=== PATIENT | male | born 1980 | race Two or more races ===

== ENCOUNTER 2021-02-06 07:39 | Outpatient (REF) | payer OTHER, SELFPAY ==
--- NOTE | ~2021-02-06 | XR_ITS ---
EXAMINATION: XR KNEE, LEFT CLINICAL INFORMATION: Knee pain COMPARISON: None TECHNIQUE: Standing AP view knees and axial patella views left knee are obtained. FINDINGS: Right knee shows no focal narrowing or erosive change or chondrocalcinosis. Normal bony mineralization. The left knee shows no fracture or dislocation, destructive process, or focal joint narrowing. No erosive changes or chondrocalcinosis. Normal bony mineralization. Lateral view shows small suprapatellar effusion. There is spurring at the proximal anterior tibial tuberosity. Corticated ossification resides in regions of distal patella tendon largest ossicle measuring 0.8 x 0 7 cm. There is mild anterior soft tissue swelling and mild edema at the deep infrapatellar recess. Findings may be related to sequela from prior Michael-Schlatter's. XR/XR knee LT 3V IMPRESSION: 1. Left: Probable sequela from prior Michael-Schlatter's with ossification in region of distal patellar tendon, spurring anterior tibial tuberosity, superficial soft tissue swelling, and mild edema deep infrapatellar recess. Small suprapatellar effusion. 2. Right: Unremarkable.
== END 2021-02-06 07:40 | disposition home or self-care (01) ==
LOC: HO.HOSX 07:39
PROVIDERS: Visit Provider Physician Assistant
DX: M23.307 Other meniscus derangements, unspecified meniscus, left knee (principal); M25.562 Pain in left knee
CPT/HCPCS: 20605; 20610; 73562; 99202; J1040

== ENCOUNTER → 2021-02-20 14:40 | Outpatient (BNVA) | payer OTHER, SELFPAY | PROVIDERS: PCP Internal Medicine; Visit Provider Nurse Practitioner Family | DX: M47.819 Spondylosis without myelopathy or radiculopathy, site unspecified (principal); M25.562 Pain in left knee | CPT/HCPCS: 99202 ==

== ENCOUNTER 2021-02-24 12:30 | Outpatient (REF) | payer OTHER, SELFPAY ==
--- NOTE | 2021-02-24 16:54 | MHC.AU.AEV ---
Adult Audiological Evaluation Date of Visit: 02/24/21 Reason for Appointment: Audiological evaluation due to reported history of hearing loss. Mr. Pierre reports that he was previously diagnosed with hearing loss at a clinic in [place] and was fit with hearing aids binaurally. He also reports constant tinnitus bilaterally that he has been experiencing for many years. 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 He has served in the [employer] and has been exposed to significant noise including explosions, firearms, and helicopters. Does patient feel they have a hearing loss?: Yes If Yes, Which Ear?: Both Ears When Was Hearing Difficulty First Noticed?: a few years ago Has hearing been tested previously?: Yes Previous Hearing Test Results: In [place] and through the . Results not available for review today. Hearing Handicap Inventory Does a hearing problem cause you to feel embarrassed when meeting new people?: Yes Does a hearing problem cause you to feel frustrated when talking to members of your family?: Yes Do you have difficulty when someone speaks in a whisper?: Yes Do you feel handicapped by a hearing problem?: Yes Does a hearing problem cause you difficulty when visiting friends, relatives, or neighbors?: Yes Does a hearing problem cause you to attend sikh service services less often than you would like?: No Does a hearing problem cause you to have arguments with family members?: No Does a hearing problem cause you difficulty when listening to TV or radio?: Yes Do you feel that any difficult with your hearing limits or hampers your personal or social life?: Yes Does a hearing problem cause you difficulty when in a restaurants with relatives or friends?: Yes HHIE SCORE: 32 Based on HHIE score, patient has: Severe perceived hearing handicap Ear History: Recent Ear Pain: Both ears, occasionally will get sharp pains in his ears Bothersome Tinnitus/Ringing/Noises in Ears: Both Ears History: History: Yes Branch: [employer] Years in : 9-12 Years Medical History: Medical History: Headache, Head Injury, Migraines, Dizziness/Unsteadiness Medical History: Has had a number of TBIs and concussions. PTSD, depression, anxiety. Appendix removal, knee surgery Allergies: Aspirin Otoscopy: Right Ear: Unremarkable Left Ear: Unremarkable Tympanometry: Tympanometry performed due to: To assess integrity of the middle ear system Right Ear: Hypercompliant Middle Ear System (Type Ad) Left Ear: Normal Middle Ear System (Type A) Otoacoustic Emissions Frequency Range Used: 1.6-8 kHz Right Ear Results: Present @ 0426-9089 Hz & 8729-6127 Hz. Reduced @ 8030-4891 Hz. Analysis: Reduced/Absent emissions suggest cochlear dysfunction Left Ear Results: Present @ 9656-3461 Hz. Reduced @ 8574-5735 Hz. Analysis: Reduced/Absent emissions suggest cochlear dysfunction Hearing Evaluation: Transducer(s) Used: Insert Earphones, Bone Conduction Method: Conventional Audiometry Stimuli Used: Pure Tones Right Ear: Description of Hearing: Volunteered responses in the mild to moderate sensorineural hearing loss range from 250-8000 Hz. Left Ear: Description of Hearing: Volunteered responses in the mild to moderately severe sensorineural hearing loss range from 250-8000 Hz. Note: Fair/Poor reliability. Patient had to be reinstructed several times due to inconsistent and unreliable responses. Initial volunteered responses were in the severe hearing loss range bilaterally, with hearing worse in the left ear than the right. Used ascending vs descending presentation with a significant difference between offered thresholds for each. SRTs do not match pure tone averages (PTAs) for either ear. Given the presence of some normal, present OAEs bilaterally, it would be expected that some of Mr. Pierre's hearing would be in the normal range where his OAEs were present. After some reinstruction, volunteered responses became slightly more consistent and thresholds improved. Final thresholds still considered only of fair reliability. Speech Recognition Threshold (SRT): Method Used: Monitored Live Voice Stimuli Used: Spondee Words Right Ear: 35 dBHL Left Ear: 30 dBHL Word Discrimination: Method: Recorded Lists Word Lists Used: NU-6 Right Ear: 88% at 70 dBHL Left Ear: 92% at 70 dBHL Recommendations: It is recommended that Mr. Pierre follow[facility] . A repeat audiological evaluation is recommended in order to obtain an audiogram of better reliability. Recommended he wear his hearing aids if he is experiencing difficulty hearing and understanding speech. Discussed tinnitus management techniques and exacerbating factors. 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 Diagnosis: Primary Diagnosis: H90.3 Bilateral Sensorineural Hearing Loss Services Performed: Comprehensive Audiological Evaluation (CPT 58996) Diagnostic Otoacoustic Emissions (CPT 65857, 26+TC) Tympanometry (CPT 44908) Signature: Provider: Esthela Berumen, CCC-A
== END 2021-02-24 12:31 | disposition home or self-care (01) ==
LOC: HO.SH 12:30
PROVIDERS: Visit Provider Internal Medicine
DX: H90.3 Sensorineural hearing loss, bilateral (principal)
CPT/HCPCS: 92557; 92567; 92588

== ENCOUNTER → 2021-03-06 09:55 | Outpatient (BNVA) | payer OTHER, SELFPAY | PROVIDERS: PCP Internal Medicine; Visit Provider Nurse Practitioner Family | DX: M47.819 Spondylosis without myelopathy or radiculopathy, site unspecified (principal); M25.562 Pain in left knee; G89.29 Other chronic pain | CPT/HCPCS: 99212 ==

== ENCOUNTER → 2021-03-20 13:50 | Outpatient (BNVA) | payer OTHER, SELFPAY | PROVIDERS: PCP Internal Medicine; Visit Provider Physician Assistant ==

== ENCOUNTER 2021-04-12 09:00 | Outpatient (RCR) | payer OTHER, SELFPAY ==
--- NOTE | 2021-02-23 10:11 | MHC.PT.EP ---
[facility] [place] Office [place] Office [place] Office [address] Thalia Velázquez [address] [phone] F: [phone] F: [phone] F: [phone] F: [phone] Physical Therapy Plan of Care Date of Evaluation: Date of Surgery: 2018 - Patellar tendon and possible meniscal repair. Diagnosis: L knee pain Assessment: Patient is a 40 year old R handed male who presents with s/s consistent with L knee pain. He had a long history of pain that resulted in patellar tendon repair and possible meniscal repair. He will bring in a surgical report next visit. Current x-rays show ossification in addition to other pathology. 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 Patient past medical history also includes plantar fasciitis and back pain. Current impairments include pain, ROM, strength, flexibility, activity tolerance and functional mobility. Functional limitations include decreased ability to walk, stand, transfer, negotiate stairs, and perform weight bearing activities.. Patient is motivated with good rehab potential. Skilled PT will address impairments and functional limitations in order to achieve goals. 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 Manual therapy to restore motion and function. Therapeutic exercise to improve strength and flexibility. Neuromuscular re-education for posture and balance. Therapeutic activities to return to functional activities of daily living. Electronically signed by: Cuco Giles, PT Please sign and return to therapist. Thank you for your referral.
--- NOTE | 2021-05-02 13:32 | MHC.PT.DC ---
[facility] [place] Office [place] Office [place] Office [address] Lisa Velázquez [address] [phone] F: [phone] F: [phone] F: [phone] F: [phone] Physical Therapy Discharge Report Diagnosis: L knee pain Date of Surgery: 2018 - Patellar tendon and possible meniscal repair. Date of Evaluation: 02/23/21 Date of Discharge: 05/02/21 Treatments to Date: 8 Cancellations to Date: 0 No Shows to Date: 0 Discharge Status: Improved Function Independent with HEP Patient Elected to Stop Discharge Summary: LAST ATTENDED PT APPT WAS 04/12/21- Pt HAS PROGREESED WELL IN PT, INCLUDING THER EXER TO ENHANCE MUSCULAR ACTIV/ STABILIZATION TRAINING- Pt NOTED REDUCED LEFT KNEE SXS AFTERWARDS; Pt INDEP W HEP AND IS D/C THIS DATE Electronically signed by: Rose Mary Fraire,PT Please sign and return to therapist. Thank you for your referral.
== END 2021-05-02 13:33 | disposition home or self-care (01) ==
LOC: HO.PTCHIC 09:00
PROVIDERS: PCP Internal Medicine; Visit Provider Physician Assistant
DX: M23.307 Other meniscus derangements, unspecified meniscus, left knee (principal)
CPT/HCPCS: 97110; 97112; 97140; 97162; 97530

== ENCOUNTER 2021-04-25 05:52 | Outpatient (REF) | payer OTHER, SELFPAY ==
--- NOTE | ~2021-04-25 | FL_ITS ---
EXAMINATION: XR FLUOROSCOPY WITH IMAGES CLINICAL INFORMATION: Spondylosis without myelopathy or radiculopathy. COMPARISON: None. TECHNIQUE: Fluoroscopy performed by Palak Mccurdy NP. Fluoroscopy time: 0.7 minutes DAP: 10.7 Gycm2 Images: 6 FINDINGS: There are 6 lumbar images obtained of fluoroscopy. There are needles positioned lateral to the L5, L4 and L3 facet joints with contrast opacifying the adjacent soft tissues. Visualized bones and the soft tissues are unremarkable. FL/FL guidance in treatment room IMPRESSION: Fluoroscopy was provided to referring physician for pain management.
== END 2021-04-25 05:53 | disposition home or self-care (01) ==
LOC: HO.RADIR 05:52
PROVIDERS: Visit Provider Anesthesiology
DX: M47.819 Spondylosis without myelopathy or radiculopathy, site unspecified (principal); M25.562 Pain in left knee; G89.29 Other chronic pain; F17.210 Nicotine dependence, cigarettes, uncomplicated
CPT/HCPCS: 64493; 64494; Q9967

== ENCOUNTER → 2021-05-02 15:00 | Outpatient (BNVA) | payer OTHER, SELFPAY | PROVIDERS: PCP Internal Medicine; Visit Provider Nurse Practitioner Family ==

== ENCOUNTER 2021-05-17 06:30 | Outpatient (REF) | payer OTHER, SELFPAY | END 2021-05-17 06:31 | disposition home or self-care (01) | LOC: HO.RADIR 06:30 | PROVIDERS: Visit Provider Internal Medicine | DX: Z13.89 Encounter for screening for other disorder (principal) ==

== ENCOUNTER 2021-05-24 06:34 | Outpatient (REF) | payer OTHER, SELFPAY ==
--- NOTE | ~2021-05-24 | FL_ITS ---
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 Fluoroscopy time: 1.4 minutes DAP: 12.5 Gycm2 Images: 4 FINDINGS: There are spinal needles overlying the bilateral outer L3, L4, and L5 neural foramen. FL/FL guidance in treatment room IMPRESSION: Fluoroscopy for pain management procedures.
== END 2021-05-24 06:35 | disposition home or self-care (01) ==
LOC: HO.RADIR 06:34
PROVIDERS: Visit Provider Internal Medicine
DX: M47.819 Spondylosis without myelopathy or radiculopathy, site unspecified (principal); M54.5 Low back pain
CPT/HCPCS: 64635; 64636

== ENCOUNTER → 2021-06-30 09:47 | Outpatient (BNVA) | payer OTHER, SELFPAY | PROVIDERS: PCP Internal Medicine; Visit Provider Internal Medicine | DX: M47.819 Spondylosis without myelopathy or radiculopathy, site unspecified (principal); M54.5 Low back pain | CPT/HCPCS: 99212 ==

== ENCOUNTER → 2021-11-01 09:52 | Outpatient (BNVA) | payer OTHER, SELFPAY | PROVIDERS: PCP Internal Medicine; Visit Provider Internal Medicine | DX: G47.33 Obstructive sleep apnea (adult) (pediatric) (principal); E66.9 Obesity, unspecified; Z99.89 Dependence on other enabling machines and devices; Z68.31 Body mass index [BMI] 31.0-31.9, adult | CPT/HCPCS: 99202 ==

== ENCOUNTER 2022-02-26 10:34 | Outpatient (REF) | payer OTHER, SELFPAY ==
--- NOTE | ~2022-02-26 | XR_ITS ---
EXAMINATION: XR SHOULDER , LEFT CLINICAL INFORMATION: Pain COMPARISON: None available at the time of this dictation. TECHNIQUE: AP external rotation, Grashey, scapular Y, and axillary views of the shoulder. FINDINGS: BONES: There is no fracture or dislocation, no osteolytic or osteoblastic lesion. JOINTS: Glenohumeral joint is properly positioned. There is mild degenerative osteoarthritis of the acromioclavicular joint. SOFT TISSUE AND INCLUDED LUNG: Normal. XR/XR shoulder LT min 2V IMPRESSION: Except for mild DJD of the AC joint, exam is normal.
== END 2022-02-26 10:35 | disposition home or self-care (01) ==
LOC: HO.XRAY 10:34
PROVIDERS: PCP Internal Medicine; Visit Provider Internal Medicine
DX: M25.512 Pain in left shoulder (principal)
CPT/HCPCS: 73030

== ENCOUNTER → 2022-04-25 09:53 | Outpatient (BNVA) | payer OTHER, SELFPAY | PROVIDERS: PCP Internal Medicine; Visit Provider Internal Medicine | DX: G47.33 Obstructive sleep apnea (adult) (pediatric) (principal); E66.9 Obesity, unspecified; Z68.31 Body mass index [BMI] 31.0-31.9, adult; Z99.89 Dependence on other enabling machines and devices | CPT/HCPCS: 99212 ==

== ENCOUNTER 2022-05-15 09:00 | Outpatient (RCR) | payer OTHER, SELFPAY ==
--- NOTE | 2022-04-13 08:57 | MHC.PT.EP ---
[facility] [place] Office [place] Office [place] Office [address] Thalia Velázquez [address] [phone] F: [phone] F: [phone] F: [phone] F: [phone] Physical Therapy Plan of Care Date of Evaluation: Date of Surgery: Diagnosis: Pain in L shoulder Assessment: Patient is a 41 year old R handed male who presents with s/s consistent with L shoulder pain. 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 Patient past medical history includes knee and back pain. Current impairments include pain, posture, ROM, strength, activity tolerance and functional mobility. Functional limitations include decreased ability to push, pull, lift, carry, reach, sleep, and dress. Patient is motivated with good rehab potential. Skilled PT will address impairments and functional limitations in order to achieve goals. 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 Manual therapy to restore motion and function. Therapeutic exercise to improve strength and flexibility. Neuromuscular re-education for posture and balance. Therapeutic activities to return to functional activities of daily living. Electronically signed by: Cuco Giles, PT Please sign and return to therapist. Thank you for your referral.
--- NOTE | 2022-07-05 11:36 | MHC.PT.DC ---
[facility] [place] Office [place] Office [place] Office [address] Lisa Velázquez [address] [phone] F: [phone] F: [phone] F: [phone] F: [phone] Physical Therapy Discharge Report Diagnosis: Pain in L shoulder Date of Surgery: Date of Evaluation: 04/13/22 Date of Discharge: 06/20/22 Treatments to Date: 7 Cancellations to Date: No Shows to Date: Discharge Status: Improved Function Independent with HEP Recommend MD Follow-up Discharge Summary: 05/15/22: pt progressing well. post cuff stretching brought relief of tightness today. given as HEP. 05/09/22: Pt progressed with strength and stability. no adverse reactions. progressing HEP. good response to manual intervention. Electronically signed by: Cuco Giles, PT Please sign and return to therapist. Thank you for your referral.
== END 2022-07-05 11:37 | disposition home or self-care (01) ==
LOC: HO.PTCHIC 09:00
PROVIDERS: PCP Internal Medicine; Visit Provider Internal Medicine
DX: M25.512 Pain in left shoulder (principal)
CPT/HCPCS: 97110; 97140; 97161

== ENCOUNTER → 2022-06-25 11:29 | Outpatient (BNVA) | payer OTHER, SELFPAY | PROVIDERS: PCP Internal Medicine; Visit Provider Internal Medicine | DX: G89.29 Other chronic pain (principal); M54.50 Low back pain, unspecified | CPT/HCPCS: 99212 ==

== ENCOUNTER → 2022-07-02 14:39 | Outpatient (BNVA) | payer OTHER, SELFPAY | PROVIDERS: PCP Internal Medicine; Visit Provider Physician Assistant | DX: M23.307 Other meniscus derangements, unspecified meniscus, left knee (principal) | CPT/HCPCS: 99212 ==

== ENCOUNTER 2022-07-11 17:03 | Outpatient (REF) | payer OTHER, SELFPAY ==
--- NOTE | ~2022-07-11 | MR_ITS ---
EXAMINATION: MR LUMBAR SPINE WITHOUT CONTRAST CLINICAL INFORMATION: Low back pain. COMPARISON: No relevant prior imaging. TECHNIQUE: MRI of the lumbar spine was obtained using routine sequences without contrast. FINDINGS: Alignment is normal. Vertebral heights are preserved. No acute bone marrow signal changes. Intervertebral disc height and signal intensity is maintained at all levels. The tip of the conus medullaris is located at L1-L2. No mass effect on the conus. Visualized distal cord signal intensity is normal. At L1-L2, L2-L3, and L3-L4 the annular contours are normal. No canal stenosis. No mass effect on the traversing or foraminal nerve roots at these 3 levels. At L4-L5 there is a slightly bulging disc. Bilateral facet degenerative change. No canal stenosis. Partial effacement of the perineural fat with mild mass effect on the right L4 foraminal nerve roots. At L4-L5 there is a slightly bulging disc. Bilateral facet degenerative change. No canal stenosis. Moderate mass effect on both L5 foraminal nerve roots. Limited visualization of the retroperitoneal anatomy reveals no abnormal finding. Psoas and paraspinal musculature symmetric. MR/MR lumbar spine wo con IMPRESSION: Bulging discs in conjunction with facet degenerative change at L5-S1 causes moderate mass effect on both L5 foraminal nerve roots. There is also mild mass effect on the right L4 foraminal nerve root related to degenerative changes at L4-L5. Otherwise unremarkable lumbar spine MRI. No canal stenosis.
== END 2022-07-11 17:04 | disposition home or self-care (01) ==
LOC: HO.MRI 17:03
PROVIDERS: Visit Provider Internal Medicine
DX: M54.9 Dorsalgia, unspecified (principal); G89.29 Other chronic pain
CPT/HCPCS: 72148

== ENCOUNTER 2022-08-30 15:48 | Outpatient (REF) | payer OTHER, SELFPAY ==
--- NOTE | ~2022-08-30 | MR_ITS ---
EXAMINATION: MR KNEE WITHOUT CONTRAST, LEFT CLINICAL INFORMATION: Left knee pain COMPARISON: Radiographs 02/06/2021 TECHNIQUE: MRI of the knee without contrast was performed using routine sequences on a high-field scanner. FINDINGS: MENISCI: Medial Meniscus: Intact Lateral Meniscus: Intact LIGAMENTS: Cruciate: Intact Collateral: Intact EXTENSOR MECHANISM: Postsurgical changes with chronic ossification at the patella tendon insertion onto the tibial tubercle. Chronic tendinopathy. Mild edema and fluid of the deep infrapatellar bursa. No acute tear. ARTICULAR CARTILAGE/BONE: Patellofemoral Compartment: Focal cartilage irregularity of the medial patellar facet inferiorly. Medial Compartment: Focal oblique chondral fissure at the lateral aspect of the weightbearing femoral condyle. Lateral Compartment: Normal JOINT FLUID AND BURSAE: Normal MR/MR knee LT wo con IMPRESSION: 1. No meniscal tear. 2. Mild patellofemoral and medial compartment osteoarthritis. 3. Chronic patella tendinopathy and postsurgical changes of the tibial tubercle.
== END 2022-08-30 15:49 | disposition home or self-care (01) ==
LOC: HO.MRI 15:48
PROVIDERS: Visit Provider Physician Assistant
DX: M23.307 Other meniscus derangements, unspecified meniscus, left knee (principal)
CPT/HCPCS: 73721

== ENCOUNTER → 2022-10-24 09:56 | Outpatient (BNVA) | payer OTHER, SELFPAY | PROVIDERS: PCP Internal Medicine; Visit Provider Internal Medicine | DX: G47.33 Obstructive sleep apnea (adult) (pediatric) (principal); E66.9 Obesity, unspecified; Z99.89 Dependence on other enabling machines and devices; Z68.32 Body mass index [BMI] 32.0-32.9, adult | CPT/HCPCS: 99212 ==

== ENCOUNTER → 2023-01-23 09:15 | Outpatient (BNVA) | payer OTHER, SELFPAY | PROVIDERS: PCP Internal Medicine; Visit Provider Internal Medicine | DX: G47.33 Obstructive sleep apnea (adult) (pediatric) (principal); J45.909 Unspecified asthma, uncomplicated; E66.9 Obesity, unspecified; Z68.32 Body mass index [BMI] 32.0-32.9, adult; Z99.89 Dependence on other enabling machines and devices | CPT/HCPCS: 99212 ==